=== PATIENT | female | born 1965 | race Hispanic/Latino ===

== ENCOUNTER 2018-06-21 09:11 | Day surgery (SDC) | payer BC ==
[~2018-06-21] VITALS: Ht 157.5 cm; Wt 100.7 kg
[~2018-06-21 09:11] MED LIST: HYDROCHLOROT12.5 MG PO; MULT1 OR; PRAVACHOL20 MG PO; SYNTHROID OR; ZESTRIL10 M1 PO
[2018-06-21 12:59] VITALS: BP 120/60
== END 2018-06-21 13:14 | disposition home or self-care (01) | DRG 379 ==
LOC: ENDO 09:11
PROVIDERS: ATTEND Internal Medicine Gastroenterology
PROC: 0DBK8ZX Excision of Ascending Colon, Via Natural or Artificial Opening Endoscopic, Diagnostic (ICD-10-PCS; principal; 2018-06-21)
DX: K57.31 Diverticulosis of large intestine without perforation or abscess with bleeding (principal); K60.2 Anal fissure, unspecified; K64.4 Residual hemorrhoidal skin tags; K64.8 Other hemorrhoids; D12.2 Benign neoplasm of ascending colon; K59.00 Constipation, unspecified; I10 Essential (primary) hypertension; E78.00 Pure hypercholesterolemia, unspecified